=== PATIENT | female | born 1945 | race Caucasian/White ===

== ENCOUNTER 2022-10-25 19:45 | Emergency (ER) | payer OTHER ==
[~2022-10-25] VITALS: Ht 165.1 cm; Wt 92.1 kg
[~2022-10-25 19:45] MED LIST: ACID REDUCER10 MG PO; ALENDRONATE SOD70 M1 PO; ASPIRIN CHEWABL81 MG PO; ATIVAN0.5 MG PO; B-121000 MC1 PO; CALCIUM500 M1 PO; CRESTOR20 M1 PO; DERMACINRX5000 UNIT PO; ELON MATRIX PO; EYE VITAMIN-MI1 EACH PO; IRON90 MG PO; LEVOXYL0.1 M1 PO; LEVOXYL0.112 MG PO; MULTI VITAMINS1 TAB PO; PHARMASSURE FO0.4 MG PO; TRAZODONE50 MG PO; VENLAFAXINE37.5 M1 PO
[2022-10-25 20:03] LABS: BASO % 0.5 % (0.0-1.0); EOS # 0.1 10*3/uL (0.0-0.4); EOS % 1.4 % (1.0-4.0); HEMATOCRIT 41.1 % (37.0-47.0); MEAN CELL VOLUME 93.6 fl (81.0-99.0); MEAN CORPUSCULAR HGB 31.2 pg (27.0-31.0); MEAN CORPUSCULAR HGB CONC 33.3 g/dl (33.0-37.0); MEAN PLATELET VOLUME 10.6 fl (9.6-12.3); MONO # 0.5 10*3/uL (0.1-1.0); MONO % 8.9 % (3.0-9.0); NEUT # 3.2 10*3/uL (2.3-7.9); NEUT % 54.9 % (47.0-73.0); PLATELET COUNT AUTOMATED 186 10*3/uL (130-400); RED BLOOD COUNT 4.39 10*6/uL (4.10-5.10); RED CELL DISTRI WIDTH 11.9 % (0-14.5); WHITE BLOOD COUNT 5.8 10*3/uL (4.8-10.8)
[2022-10-25 20:15] LABS: ACT PARTIAL THROMBO TIME 25.5 SECONDS (20.0-32.1)
[2022-10-25 20:22] LABS: ALKALINE PHOSPHATASE 69 U/L (46-116); BUN 14 mg/dl (9-23); CHLORIDE 107 mmol/L (98-107); POTASSIUM 4.7 mmol/L (3.4-5.1); SGPT/ALT 21 U/L (10-49); TOTAL PROTEIN 6.5 gm/dL (6.0-8.0)
== END 2022-10-25 23:29 | disposition home or self-care (01) ==
LOC: ED 19:45
PROVIDERS: Internal Medicine
DX: R07.89 Other chest pain (principal); R06.02 Shortness of breath; R11.0 Nausea; I10 Essential (primary) hypertension; E78.5 Hyperlipidemia, unspecified; F41.9 Anxiety disorder, unspecified; Z88.8 Allergy status to other drugs, medicaments and biological substances; Z91.011 Allergy to milk products; Z91.018 Allergy to other foods; Z88.6 Allergy status to analgesic agent; Z79.899 Other long term (current) drug therapy; Z79.82 Long term (current) use of aspirin; Z98.890 Other specified postprocedural states; Z90.89 Acquired absence of other organs; Z90.49 Acquired absence of other specified parts of digestive tract

== ENCOUNTER 2022-11-26 17:51 | Emergency (ER) | payer MEDICARE, OTHER ==
[~2022-11-26] VITALS: Wt 86.2 kg
[2022-11-26] MEDS ORDERED: AMLODIPINE BESYL5 MG PO (18:34)
[2022-11-26] MEDS ORDERED: LEVOTHYROXINE125 MCG PO (18:36)
[2022-11-26] MEDS ORDERED: PAXIL30 M2 PO (18:40)
== END 2022-11-26 20:14 | disposition home or self-care (01) ==
LOC: ED 17:51
DX: R51.9 Headache, unspecified (principal); H57.89 Other specified disorders of eye and adnexa; K21.9 Gastro-esophageal reflux disease without esophagitis; E78.5 Hyperlipidemia, unspecified; D64.9 Anemia, unspecified; E03.9 Hypothyroidism, unspecified; I10 Essential (primary) hypertension; Z88.8 Allergy status to other drugs, medicaments and biological substances; Z91.018 Allergy to other foods; Z88.6 Allergy status to analgesic agent; Z88.5 Allergy status to narcotic agent; Z91.011 Allergy to milk products; Z90.89 Acquired absence of other organs; Z98.890 Other specified postprocedural states; Z90.49 Acquired absence of other specified parts of digestive tract